=== PATIENT | female | born 1970 | race Caucasian/White ===

== ENCOUNTER 2025-07-24 16:02 | Outpatient (CLI) | payer MEDICARE ==
--- NOTE | 2025-07-24 18:06 | RADIOLOGY REPORT ---
PROCEDURE: MR MRI LUMBAR SPINE Indication: RADICULOPATHY, LUMBAR REGION COMPARISON: None TECHNIQUE: Multiplanar multisequence images of the the lumbar spine are obtained. FINDINGS: For the purpose of this examination, there are 5 lumbar vertebral body types counting from the lumbosacral junction. Lumbar heights maintained. Reversal normal lumbar signs for curvature. Severe multilevel disc space narrowing. No abnormal marrow edema. Conus terminates at the level of the L1 level. L1-2: No spinal canal stenosis. Mild bilateral neural foraminal stenosis. L2-3: Large right paracentral disc protrusion extending 6 mm posteriorly thecal sac measures 5 mm AP. Severe spinal canal stenosis. Moderate right and [id number] left neural foraminal stenosis. L3-4: 3 mm disc protrusion. Moderate facet and flavum hypertrophy. Thecal sac measures 12 mm AP. No spinal canal stenosis. [id number] bilateral neural foraminal stenosis. L4-5: Large paracentral disc protrusion extending 7 mm posteriorly, compressing upon the descending left L5 nerve root Moderate facet and flavum hypertrophy. Thecal sac measures 4 mm AP. Severe spinal canal stenosis. Moderate to severe right and severe L5-S1: 4 mm disc protrusion. Moderate facet and flavum hypertrophy. Thecal sac measures 7 mm AP. Moderate spinal canal stenosis. Severe right and moderate left neural foraminal stenosis. IMPRESSION: Severe lumbar degenerative disc disease. Severe spinal canal stenosis at L2-3, L4-5. Moderate spinal canal stenosis L5-S1. Multilevel moderate to severe neural foraminal stenosis as described Large left paracentral disc protrusion L4-5 which compresses upon the descending left L5 nerve root.
== END 2025-07-24 23:59 | disposition home or self-care (01) ==
LOC: MRI02 16:02
PROVIDERS: ATTEND Physician Assistant
DX: M21.371 Foot drop, right foot (principal); M54.16 Radiculopathy, lumbar region; M48.061 Spinal stenosis, lumbar region without neurogenic claudication; M54.18 Radiculopathy, sacral and sacrococcygeal region
CPT/HCPCS: 72148